=== PATIENT | male | born 1980 | race Caucasian/White ===

== ENCOUNTER 2020-05-05 20:17 | Emergency (ER) | payer MEDICAID ==
[~2020-05-05] VITALS: Ht 177.8 cm; Wt 124.0 kg
[~2020-05-05 20:17] MED LIST: DIPH1TAB PO; IBUP-1985 PO; ONDA8TAB6 PO
[2020-05-05 20:39] VITALS: BP 131/70
== END 2020-05-05 21:25 | disposition left against medical advice (07) ==
LOC: ER 20:18
DX: M54.9 Dorsalgia, unspecified (principal); Z53.21 Procedure and treatment not carried out due to patient leaving prior to being seen by health care provider

== ENCOUNTER 2020-06-02 21:13 | Emergency (ER) | payer BC, MEDICAID ==
[~2020-06-02] VITALS: Ht 177.8 cm; Wt 127.3 kg
[2020-06-02 21:18] VITALS: BP 126/97
== END 2020-06-02 21:58 | disposition home or self-care (01) ==
LOC: ER 21:14
DX: B35.1 Tinea unguium (principal); G62.9 Polyneuropathy, unspecified; Z98.890 Other specified postprocedural states; Z56.0 Unemployment, unspecified; Z79.899 Other long term (current) drug therapy
CPT/HCPCS: 99282

== ENCOUNTER 2021-02-05 17:42 | Emergency (ER) | payer BC, MEDICAID ==
[~2021-02-05] VITALS: Ht 177.8 cm; Wt 122.0 kg
[2021-02-05 18:59] VITALS: BP 147/99
== END 2021-02-05 18:54 | disposition home or self-care (01) ==
LOC: ER 17:42
DX: S90.111A Contusion of right great toe without damage to nail, initial encounter (principal); Z98.890 Other specified postprocedural states; Z72.89 Other problems related to lifestyle; Z79.899 Other long term (current) drug therapy; Z56.0 Unemployment, unspecified; W22.8XXA Striking against or struck by other objects, initial encounter; Y93.89 Activity, other specified; Y92.89 Other specified places as the place of occurrence of the external cause; Y99.8 Other external cause status
CPT/HCPCS: 73660; 99284

== ENCOUNTER 2021-02-24 18:58 | Emergency (ER) | payer BC, MEDICAID ==
[~2021-02-24] VITALS: Ht 177.8 cm; Wt 117.7 kg
--- NOTE | 2021-02-24 19:32 | NUR ---
Patient BIB by his friend. Patient denies SI or HI. Patient states he was "irritable" because he was at home "doing too many things at once and too many people talking to me". Patient denies any history of mental health issues. Medical record indicates history of autism which patient endorses but denies currently or ever taking medications for autism. Patient states he wanted to come in "so you guys could check me out and see if I am alright because I feel fine now."
[2021-02-24] MEDS ORDERED: diphenhydrAMINE 25mg capsule PO ONE (20:05)
[2021-02-24] MEDS ORDERED: LORazepam 1 MG tablet PO ONE (20:05)
[2021-02-24] MEDS ORDERED: ziprasidone 20mg capsule PO ONE (20:05)
[2021-02-24] MEDS ORDERED: LORA-269 PO (20:09)
[2021-02-24] MEDS ORDERED: QUET25TA PO (20:09)
[2021-02-24] MEDS ORDERED: HYDR-3686 PO (20:09)
--- NOTE | 2021-02-24 20:10 | NUR ---
Per Dr. Menard, give patient the medication once patient calls for his ride and ride is on the way. Patient called his friend "the doctor" who is coming to pick him up. Patient offered a sandwich but declined, states he has food at home.
[2021-02-24 20:24] VITALS: BP 140/100
== END 2021-02-24 20:35 | disposition home or self-care (01) ==
LOC: ER 18:58
DX: G47.00 Insomnia, unspecified (principal); R45.1 Restlessness and agitation; F84.0 Autistic disorder; G62.9 Polyneuropathy, unspecified; Z72.89 Other problems related to lifestyle; Z56.0 Unemployment, unspecified; Z79.899 Other long term (current) drug therapy
CPT/HCPCS: 99284; Q0163